=== PATIENT | female | born 2000 | race Two or more races ===

== ENCOUNTER 2024-05-27 22:17 | Emergency (ER) | payer MEDICAID, SELFPAY ==
[2024-05-27 22:17] VITALS: BMI 34.9
[2024-05-27 23:34] VITALS: BP 124/73; PULSE 73; RESP 18; TEMP 36.8; O2SAT 97
--- NOTE | 2024-05-27 23:45 | PD.EDRME ---
Rapid Medical Screening Exam RME Arrival date/time: 05/27/24 22:17 23-year-old female approximately 25 weeks 1 presents emergency department complaining of epigastric pain that radiates towards her back that started earlier today. Patient reports past medical history of gallstones. Chief Complaint: Abdominal Pain Vital signs: Vital Signs Temperature 98.2 F 05/27/24 23:34 Pulse Rate 73 05/27/24 23:34 Respiratory Rate 18 05/27/24 23:34 Blood Pressure 124/73 05/27/24 23:34 Pulse Oximetry (%) 97 05/27/24 23:34 Oxygen Delivery Method Room Air 05/27/24 23:34 Vital signs reviewed by provider: Yes
[2024-05-27] MEDS: ACETAMINOPHEN 500 MG TABLET 1000 MG PO (23:56)
--- NOTE | 2024-05-28 | XR_ITS ---
Examination: Abdomen sonogram, Limited Date and time of exam: May 28, 2024 at 1240 hours INDICATIONS: Epigastric pain beginning today with nausea Technique: Real-time do scale transabdominal sonographic images of the upper abdomen obtained. Findings: Multiple gallstones Gallbladder wall 0.2 cm Common bile duct 0.3 cm Pancreatic head 3.0 cm Liver 16.9 cm fatty infiltration smooth contour no focal liver lesions Normal hepatopedal portal venous flow Patent IVC IMPRESSION: Cholelithiasis, negative for cholecystitis
[2024-05-28 00:23] LABS: Collection Type, Urine Clean Catch
[2024-05-28 00:23] LABS: Basophils % (Auto) 0 % (0-2.5); Eosinophils # (Auto) 0.1 Thou/mm3 (0.0-0.5); Eosinophils % (Auto) 1 % (0-10); Hematocrit 38.8 % (36.0-46.0); Hemoglobin 13.4 g/dL (12.0-16.0); Immature Granulocytes % (Auto) 1 % (0-0); Immature Granulocytes Auto 0.13 Thou/mm3 (0.00-0.00); Lymphocytes % (Auto) 8 % (10-50); Mean Corpuscular HGB Conc 34.5 g/dl (31.0-37.0); Mean Corpuscular Hemoglobin 30.2 pg (25.0-35.0); Mean Corpuscular Volume 88 fL (80-100); Monocytes # (Auto) 0.9 Thou/mm3 (0.0-0.8); Monocytes % (Auto) 7 % (0-12); Neutrophils # (Auto) 11.2 Thou/mm3 (1.8-7.7); Neutrophils % (Auto) 84 % (37-80); Nucleated Red Blood Cell % 0 /100 WBC (0); Platelet Count 248 Thou/mm3 (140-440); RDW Standard Deviation 41.4 fL (36.4-46.3); Red Blood Count 4.43 Miln/mm3 (4.00-5.20); White Blood Count 13.4 Thou/mm3 (3.6-11.0)
[2024-05-28 00:35] LABS: Alanine Aminotransferase 37 U/L (10-49); Albumin, Serum 4.2 gm/dL (3.5-5.0); Albumin/Globulin Ratio 1.5 (1.2-2.2); Alkaline Phosphatase 105 U/L (46-116); Anion Gap 6 (7-16); Aspartate Amino Transferase 47 U/L (0-34); BUN/Creatinine Ratio 10 Ratio (12-20); Bilirubin,Total 0.6 mg/dL (0.3-1.2); Blood Urea Nitrogen 6 mg/dL (9-23); Calcium 9.4 mg/dL (8.3-10.6); Calcium (Corrected) 9.4 mg/dL (8.5-10.1); Carbon Dioxide 26.1 mMol/L (20.0-31.0); Chloride 105 mMol/L (98-107); Creatinine (Component) 0.6 mg/dL (0.6-1.3); Estimated Creatinine Clearance 175.5 mL/min (>60); Globulin 2.8 gm/dL (2.3-3.5); Glucose 115 mg/dL (74-106); Lipase 47 U/L (12-53); Osmolality,Calculated 272 (275-295); Potassium 3.8 mMol/L (3.4-5.1); Sodium 137 mMol/L (136-145); eGFR > 60 See Note
[2024-05-28 00:43] LABS: Bacteria,Urine 1+; Bilirubin,Urine Negative (Negative); Blood,Urine Negative (Negative); Budding Yeast,Urine Present; Clarity,Urine Turbid (Clear/Hazy); Color,Urine Yellow (Lt Yel-Yel); Glucose, Urine Negative (Negative); Ketones,Urine Negative (Negative); Leukocyte Esterase,Urine Negative (Negative); Nitrite,Urine Negative (Negative); Protein,Urine Trace (Neg - Trace); RBC,Urine 8 /hpf (0-3); Specific Gravity,Urine 1.023 (1.001-1.035); Squamous Epithelial Cell,Urine 1 /hpf (0-5); WBC,Urine 15 /hpf (0-5)
[2024-05-28 00:47] LABS: Culture Indicated,Urine Yes; Sperm,Urine Present
[2024-05-28 00:54] LABS: Beta HCG,Quantitative 2568 mIU/mL (<5.0)
[2024-05-28 01:04] VITALS: BP 127/65; PULSE 65; RESP 18; TEMP 36.7; O2SAT 99
--- NOTE | 2024-05-28 01:07 | PD.EDABDPN ---
ED Abdominal Pain RME/HPI General Chief Complaint: Abdominal Pain Stated complaint: RIGHT UPPER ABD PAIN Time seen by provider: 05/28/24 01:04 Arrival date/time: 05/27/24 22:17 RME / HPI RME / HPI narrative: 05/27/24 22:17 23-year-old female approximately 25 weeks 1 presents emergency department complaining of epigastric pain that radiates towards her back that started earlier today. Patient reports past medical history of gallstones. --------- Dr. Tim?s Main ED Evaluation: 23yo female with a history of gallstones who is approx. 25 weeks gestation presents to the ED for a chief complaint of epigastric pain x 2200. Patient states her pain feels similar to her gallstone pain, but reports she's had decreased movement and was concerned, so she came in for evaluation. She reports one associated emetic episode. She denies any vaginal bleeding or discharge, fever, chills or any other associated symptoms. No known allergies. OB is Marily Franklin. Related Data Previous Rx's ?Medication ?Instructions ?Recorded hydrocodone 5 mg-acetaminophen 325 1 tab PO BID PRN pain #10 tabs 10/29/23 mg tablet ibuprofen 800 mg tablet 800 mg PO TID PRN pain #30 tabs 10/29/23 ondansetron 4 mg disintegrating 4 mg PO Q8H PRN nausea and 10/29/23 tablet vomiting #10 tabs Allergies Allergy/AdvReac Type Severity Reaction Status Date / Time No Known Allergies Allergy Verified 05/27/24 22:20 Review of Systems Review of Systems Systems Reviewed: All systems reviewed, normal except as documented Past Medical History Past Medical History CARDIAC: Negative Congestive Heart Failure, Hypertension or Hypotension RESPIRATORY: Negative Chronic Obstructive Pulmonary Disease (COPD) GASTROINTESTINAL: Positive Gall Bladder Disease GENITOURINARY: Negative Genitourinary Disorders or Renal Disease ENDOCRINE: Negative Diabetes Mellitus Type 1 or Diabetes Mellitus Type 2 Social History SMOKING STATUS: Never smoker ED Exam Narrative Physical exam: GENERAL APPEARANCE: alert and oriented x 4, well-developed, well-nourished, no acute distress VITALS: All vitals were reviewed and the pulse ox is 99% on room air, which is normal according to my interpretation. HEENT: Normocephalic, atraumatic; pupils equal, round, reactive to light; EOMI; mucous membranes pink, moist; oropharynx clear NECK: Supple LUNGS: CTABL; no wheezes, no rales, no rhonchi HEART: Regular rate, regular rhythm; normal S1, S2; no murmurs ABDOMEN: non distended; normal BS; soft, no tenderness, no guarding, no rebound; no masses, no organomegaly, no hernia BACK: no CVA tenderness EXTREMITIES: atraumatic; no edema NEUROLOGIC: awake; alert and oriented x4; cranial nerves II-XII grossly intact; no focal sensory or motor deficits PSYCHIATRIC: appropriate mood and affect SKIN: warm, dry, normal color; no rashes Course Quality Measures none Orders Category Date Time Status US OB limited Stat Exams 05/28/24 01:43 Taken US gall bladder Stat Exams 05/28/24 00:00 Taken Beta HCG,Quantitative Stat Lab 05/27/24 23:59 Completed CBC Stat Lab 05/27/24 23:59 Completed CMP [Comprehensive Metabolic Panel] Stat Lab 05/27/24 23:59 Completed Lipase Stat Lab 05/27/24 23:59 Completed Urinalysis, C/S if Indicated Stat Lab 05/28/24 00:10 Completed Urine Culture Stat Lab 05/28/24 00:10 Received Acetaminophen Tab [Tylenol ES Tab] Med 05/27/24 23:43 Discontinued 1,000 mg PO X1 ONE cefTRIAXone [Rocephin] 1,000 mg Med 05/28/24 02:56 Discontinued Lidocaine 1% 20 ml [Xylocaine 1% 20 ML] 2.1 ml IM X1 cefTRIAXone/D5w 1gm IV premix [Rocephin/D5w 1gm IV Med 05/28/24 02:44 Discontinued premix] 50 ml IV X1 Vital Signs Vital signs: Vital Signs Temperature 98.2 F 05/27/24 23:34 Pulse Rate 73 05/27/24 23:34 Respiratory Rate 18 05/27/24 23:34 Blood Pressure 124/73 05/27/24 23:34 Pulse Oximetry (%) 97 05/27/24 23:34 Oxygen Delivery Method Room Air 05/27/24 23:34 Abdominal Pain MDM MDM Narrative MDM Narrative:: Scribe Attestation: 05/28/24 - Ilene Reyes am scribing for and in the presence of Dr. Tim. Patient data External records reviewed:: [facility] previous records (Per chart review, patient was seen here on 01/16/24 for gallstones.) Clinical information provided by:: patient Social determinants that could affect healthcare access:: none Patient has the following chronic illnesses:: gallstones How is presenting disease/condition affected by chronic disease/condition?: caused by Evaluation data The following diagnostics were reviewed and interpreted by me:: lab results and radiology exam(s) Lab and/or radiology exams considered but not ordered:: none Interpretation Summary: WBC count is elevated at 13.4, AST is slightly elevated, Total Bilirubin is normal, Lipase is normal, Beta HCG is 2568, UA is positive for a UTI, according to my interpretation. ----- [facility] Preliminary Report Draft Patient: PARAMJIT PARISH. Record#: [id number] Birthdate: 2000 Age/Sex: 23 / F Location: [facility] Attending Dr: Ordering Physician: Date of Service: Procedure(s): Accession Number(s): cc: ~ Right upper quadrant abdominal ultrasound. January 15, 2024 at 0530 hours Clinical history: Right upper quadrant/epigastric pain; has stones. Technique: Grayscale and color flow images of the right upper quadrant are provided. Hepatic and portal veins were also imaged with color flow images. Comparison: No prior study is available for comparison. Findings: The liver is normal in echogenicity. No intrahepatic biliary ductal dilatation. Multiple gallbladder calculi are see. No gallbladder wall thickening or pericholecystic fluid is demonstrated. The common bile duct is dilated in caliber at 8.1 mm. The pancreas is not visualized due to bowel gas. Impression: Dilated common bile duct, the possibility of cholangitis cannot be excluded. Recommend clinical correlation and follow-up. Cholelithiasis without defined evidence of acute cholecystitis. Report Electronically Signed By: Timbo Gibbons 01/15/2024 7:04:44 AM [employer] Preliminary Report Draft Patient: PARAMJIT PARISH. Record#: [id number] Birthdate: 2000 Age/Sex: 23 / F Location: [facility] Attending Dr: Ordering Physician: Date of Service: Procedure(s): Accession Number(s): cc: ~ Ultrasound Abdomen. May 28, 2024 at 0040 hours Clinical history: Rule out gallstones, complaint of abdominal pain. Technique: Grayscale and color flow images of the abdomen are provided. Hepatic and portal veins were also imaged with color flow images. Comparison: No prior study is available for comparison. Findings: Gallbladder wall is 2 mm thick. Multiple gallbladder calculi and sludge are noted. Common bile duct is 3 mm in diameter. Pancreas is unremarkable to the extent visualized. Liver is 16.9 cm long and o'clock. Main portal vein is antegrade. Inferior vena cava is patent. Impression: Cholelithiasis and gallbladder sludge. No ultrasound findings of cholecystitis. Report Electronically Signed By: Tye Taveras 05/28/2024 2:24:21 AM [employer] Preliminary Report Draft Patient: PARAMJIT PARISH Record#: [id number] Birthdate: 2000 Age/Sex: 23 / F Location: [facility] Attending Dr: Ordering Physician: Date of Service: Procedure(s): Accession Number(s): cc: ~ Limited Obstetrics Ultrasound; dated May 28, 2024 at 0209 hours Clinical history: No movement felt by mom x? hours. Findings and Impression: Live intrauterine gestation with heart rate of 127 bpm. Normal motion is seen. Report Electronically Signed By: Tye Taveras 05/28/2024 3:35:46 AM [EST] Medications / Prescriptions Medications or Prescriptions considered but not ordered:: none Medication administrations:: Medication Administration History Discontinued Medications Acetaminophen (Acetaminophen 500 Mg Tablet) 1,000 mg PO X1 ONE Stop: 05/27/24 23:44 Last Admin: 05/27/24 23:56 Dose: 1,000 mg Documented By: FARIBA Ceftriaxone Sodium 1,000 mg/ (Lidocaine HCl 2.1 ml) 0 mg IM X1 ONE Stop: 05/28/24 02:57 Last Admin: 05/28/24 03:00 Dose: 1,000 mg Documented By: REBECCA Ceftriaxone Sodium/Dextrose (Rocephin/D5w 1gm Iv Premix) 50 mls @ 100 mls/hr IV X1 ONE Stop: 05/28/24 03:13 Last Admin: 05/28/24 03:01 Dose: Not Given Documented By: CB Non-Admin Reason: Duplicate Medication on eMAR see above Consultations Consultation(s) initiated? (list below): No Diagnosis Differential diagnosis abdominal pain: pancreatitis and other (cholecystitis, choledocolithiasis, gallstone pancreatitis, PUD, gastritis) Most likely diagnosis given after review of the tests above:: see below Admission Indicated Admission indicated?: not indicated Admission Request Was there a request for admission?: No Disposition Plan Disposition Plan: Discharge Discharge Attestation Discharge Attestation: The patient and all family members were given an opportunity to ask questions and understood the discharge instructions. Discharge instructions specifically effects, indications for sooner follow up or return to the emergency department, and the expected course of current diagnosis. Patient condition: Stable Discharge Plan Plan Patient Disposition: HOME (Self Care) Disposition Comment: Stable for discharge Patient condition on transfer: Stable Prescriptions/Referrals Prescriptions/Med Rec: No Action ibuprofen 800 mg tablet 800 mg PO TID PRN (Reason: pain) Qty: 30 0RF hydrocodone-acetaminophen 5-325 mg tablet 1 tab PO BID MDD 10 PRN (Reason: pain) Qty: 10 0RF ondansetron 4 mg tablet,disintegrating 4 mg PO Q8H PRN (Reason: nausea and vomiting) Qty: 10 0RF Problem List Clinical Impression: Biliary colic Patient/Caregiver Discharge Instructions Discharge Activity: activity as tolerated Diet Instructions: No greasy or fatty foods. Education Materials: What Are Gallstones, ED Gallstones with Biliary Colic Additional Instructions: Return to the emergency department for any worsening or any further medical problems. Otherwise you should follow-up with your primary care doctor within the next several days as well as your primary [employer] doctor Print Language: Citizen Of [place] Stand Alone Forms: Susan Award Info., Patient Portal Info Letter
--- NOTE | 2024-05-28 01:43 | XR_ITS ---
Examination: age Limited Technique: Limited transabdominal sonographic images pelvis Exam date and time: May 28, 2024 at 0209 hrs. Indications: Decreased movement beginning 7:00 AM yesterday Findings: Viable intrauterine gestation movement and tone noted Cardiac motion 127 BPM Impression: Viable intrauterine gestation with movement and tone
--- NOTE | 2024-05-28 02:25 | PRELIM_ITS ---
Ultrasound Abdomen. May 28, 2024 at 0040 hours Clinical history: Rule out gallstones, complaint of abdominal pain. Technique: Grayscale and color flow images of the abdomen are provided. Hepatic and portal veins were also imaged with color flow images. Comparison: No prior study is available for comparison. Findings: Gallbladder wall is 2 mm thick. Multiple gallbladder calculi and sludge are noted. Common bile duct is 3 mm in diameter. Pancreas is unremarkable to the extent visualized. Liver is 16.9 cm long and o'clock. Main portal vein is antegrade. Inferior vena cava is patent. Impression: Cholelithiasis and gallbladder sludge. No ultrasound findings of cholecystitis. Report Electronically Signed By: Tye Taveras 05/28/2024 2:24:21 AM [EST]
[2024-05-28] MEDS: cefTRIAXone 1,000 MG, LIDOCAINE 1% 20 ML 2.1 ML IM (03:00)
--- NOTE | 2024-05-28 03:36 | PRELIM_ITS ---
Limited Obstetrics Ultrasound; dated May 28, 2024 at 0209 hours Clinical history: No movement felt by mom x? hours. Findings and Impression: Live intrauterine gestation with heart rate of 127 bpm. Normal motion is seen. Report Electronically Signed By: Tye Taveras 05/28/2024 3:35:46 AM [EST]
== END 2024-05-28 03:33 | disposition home or self-care (01) ==
PROVIDERS: Emergency Provider Emergency Medicine
DX: O26.612 Liver and biliary tract disorders in pregnancy, second trimester (principal); K80.70 Calculus of gallbladder and bile duct without cholecystitis without obstruction; Z3A.25 25 weeks gestation of pregnancy
CPT/HCPCS: 36415; 76705; 76815; 80053; 81001; 83690; 84702; 85025; 87086; 96372; 99284; J0696; J3490; A9270

== ENCOUNTER 2024-06-04 21:08 | Observation (INO) | payer MEDICAID, SELFPAY ==
--- NOTE | 2024-06-04 21:38 | PD.LDPN ---
Documentation for date of: 06/04/24 OB Labor Progress Note Assessment and Plan Comments: Patient is a 23yo G1 with SIUP at 26+wk presenting to L&D for less movement today. She notes no ctx, no lof, no vaginal bleeding. Current : This has been uncomplicated, she has had regular OB care with her OBGYN. Hasn't done glucola test yet. ROS negative other than what was described above. Vitals wnl, afebrile General: well developed, well nourished, no acute distress, conversant Cardiac: normal heart rate Lungs: breathing without distress Abdomen: soft, gravid, non-tender, no rebound or guarding Extremities: no pain with palpation of calves NST: reassuring for gestational age with 10x10 accels, no decels, mod em Bedside ultrasound performed by Dr. Alba: SIUP with cephalic presentation, +FCA, very active FM, posterior placenta, MVP 4.5cm Assessment: Patient is a 23yo G1 with SIUP at 26+wk with decreased movement. Vitals wnl, benign exam. Reassuring status based on NST/MVP (modified BPP). Plan: -Provided reassurance regarding findings -Continue routine follow up with OBGYN -Discussed return precautions at length including FKCs to start at 28wk Dr. Alba
[2024-06-04 22:04] VITALS: BP 129/60; PULSE 77; RESP 100; RESP 16; TEMP 36.8; BMI 35.6
== END 2024-06-04 22:08 | disposition home or self-care (01) ==
PROVIDERS: Admitting Provider Obstetrics & Gynecology; Visit Provider Obstetrics & Gynecology
DX: O36.8120 Decreased fetal movements, second trimester, not applicable or unspecified (principal); Z3A.26 26 weeks gestation of pregnancy
CPT/HCPCS: 59025; 59899

== ENCOUNTER 2024-06-23 18:56 | Emergency (ER) | payer MEDICAID, SELFPAY ==
[2024-06-23 18:01] VITALS: BP 137/81; PULSE 67
--- NOTE | 2024-06-23 18:29 | PD.LDTRIAGE2 ---
Documentation for date of: 06/23/24 Hx History Provider: Marily Franklin : 1 Para: 0 Hx Section: No Hx Vaginal Delivery Post : No Gestation Info Final DOMINIQUE: 09/08/24 Gestational Age (weeks): 28 Complaint Complaint Complaint: Severe right upper quadrant pain and nausea vomiting, fundus nontender pain right upper abdomen. Medical History Medical History Medical History: Patient is a 23-year-old G1, P0 at 28 weeks all care complicated with Marily Franklin with a history of gallstones present for at least a year with multiple trips to the ER. Patient presents with intractable nausea vomiting and pain. She was cleared from obstetrics and sent back down to the emergency room for further evaluation and a surgical consult. She reports good movement no contractions no loss of fluids no vaginal bleeding Contractions Evaluation Contractions Resting Tone Palpate: Soft Contraction Comment: No contractions seen on monitor Vaginal Bleeding Vaginal Bleeding Amount: None Heart Monitoring Heart Rate Assessment Monitor Mode: External FHR Baseline: 140 Accelerations: 15x15 Monitor Decelerations: None FHR Pattern Category: Category l Movement Reported: Yes NST Reactive: Yes WNL for GA: Yes Assessment Comment: Category 1 for gestational age of 28 weeks Amniotic Membranes Amniotic Membranes Amniotic Membrane Status: Intact RN Notes Disposition Dispostition: ER (Patient with right upper quadrant pain aacute gallbladder attack. Cleared from the obstetrical unit to go down to the ER to be further evaluated by general surgery. If patient needs to get admitted she will be admitted back up to labor and delivery for observation and pain control with general lila)
--- NOTE | 2024-06-23 18:37 | PD.LDPN ---
Documentation for date of: 06/23/24 OB Labor Progress Note Pain Control Pain control: other (Patient reports fairly severe right upper quadrant pain) Comments: Patient is a 23-year-old all care with Marily Franklin CNM presented to triage at 28 weeks with an EDC of 09/08/2024 with right upper quadrant pain. Patient has a history of gallstones diagnosed around a year ago and no definitive gallbladder removal yet. Patient reports nausea vomiting increasing over the last 2 days unable to keep food down. She has been trying Tylenol at home without success. She was sent from the ER to get cleared obstetrically. At this point we will send her back downstairs for further imaging labs and a surgical consult. Pelvic Exam Amniotic membrane status: Intact Comments: Pelvic exam exam deferred Contractions Contraction frequency: No uterine contractions Status status: Category l Comments: Reactive for 28-week Assessment and Plan Plan OB labor note: other (Send back to the ER for further evaluation.) Comments: If patient needs to be admitted will admit here as an antepartum patient on labor and delivery. With surgical consult. Okay for patient to have Dilaudid or [place] during for pain with gallstones.
--- NOTE | 2024-06-23 18:55 | PC.NURSE ---
1809- CALL MADE TO MD NÉSTOR CARY REPORT GIVEN. EDC 09/08/24 GA 28 08/22 TODAY. DENIES CTX OR TIGHTENING OF STOMACH, DENIES LEAKING OR BLEEDING AND REPORTS ACTIVE FM. CAT 1 STRIP AT THIS TIME. REPORTS RIGHT UPPER QUADRANT PAIN 01/25 PT STATES I DONT THINK IM IN LABOR IT HURTS LIKE ITS MY GALLSTONES AND HAS HISTORY OF GALLSTONES SINCE MAY 2023 WITH MULTIPLE VISITS TO ED RELATED TO ABDOMINAL PAIN. POC TO TRANSFER PT TO ED FOR FURTHER EVALUATION. PT REPORTS TAKING TYLENOL AT HOME AT AROUND 1200. 1827- EFMX2 REMOVED FOR TRANSFER TO ED VIA WHEELCHAIR. REPORT GIVEN TO ED TRIAGE NURSE. REACTIVE NST AND NO CTX PER EFM STRIP. 1829- TO ED VIA WHEELCHAIR ACCOMPANIED BY RN. PER TRIAGE NURSE PT TO BE TAKEN TO REGISTRATION.
[2024-06-23 19:21] VITALS: BMI 35.2
[2024-06-23 19:35] VITALS: BP 139/85; PULSE 82; RESP 18; TEMP 36.6; O2SAT 97
--- NOTE | 2024-06-23 19:36 | XR_ITS ---
Examination: Abdomen sonogram, Limited Date and time of exam: June 23, 2024 1001 hrs. Indications: Right upper abdominal pain today, cholecystectomy 2 weeks ago Technique: Real-time do scale transabdominal sonographic images of the upper abdomen obtained. Findings: History given is apparently incorrect Gallbladder is identified with multiple gallstones No common bile duct is abnormally large 0.9 cm Pancreatic head 2.3 cm Liver 14.7 cm fatty infiltration Normal hepatopedal portal venous flow Patent IVC Impression: Abnormal enlargement common bile duct, recommend MRCP follow-up
--- NOTE | 2024-06-23 19:36 | PD.EDRME ---
Rapid Medical Screening Exam RME Arrival date/time: 06/23/24 18:56 23-year-old female 29 weeks gestation reports with complaints of epigastric and right upper quadrant abdominal pain that radiates to the back Time Seen by Provider: 06/23/24 19:34 Vital signs: Vital Signs Pulse Rate 67 06/23/24 18:01 Blood Pressure 137/81 H 06/23/24 18:01
[2024-06-23 19:49] LABS: Basophils % (Auto) 0 % (0-2.5); Eosinophils % (Auto) 0 % (0-10); Hematocrit 41.7 % (36.0-46.0); Hemoglobin 14.4 g/dL (12.0-16.0); Immature Granulocytes % (Auto) 1 % (0-0); Immature Granulocytes Auto 0.11 Thou/mm3 (0.00-0.00); Lymphocytes # (Auto) 0.7 Thou/mm3 (1.0-4.8); Lymphocytes % (Auto) 5 % (10-50); Mean Corpuscular HGB Conc 34.5 g/dl (31.0-37.0); Mean Corpuscular Hemoglobin 29.9 pg (25.0-35.0); Mean Corpuscular Volume 87 fL (80-100); Monocytes # (Auto) 0.9 Thou/mm3 (0.0-0.8); Monocytes % (Auto) 6 % (0-12); Neutrophils # (Auto) 12.8 Thou/mm3 (1.8-7.7); Neutrophils % (Auto) 88 % (37-80); Nucleated Red Blood Cell % 0 /100 WBC (0); Platelet Count 252 Thou/mm3 (140-440); RDW Standard Deviation 40.1 fL (36.4-46.3); Red Blood Count 4.82 Miln/mm3 (4.00-5.20); White Blood Count 14.6 Thou/mm3 (3.6-11.0)
[2024-06-23 20:09] LABS: Alanine Aminotransferase 76 U/L (10-49); Albumin, Serum 4.7 gm/dL (3.5-5.0); Albumin/Globulin Ratio 1.6 (1.2-2.2); Alkaline Phosphatase 149 U/L (46-116); Anion Gap 10 (7-16); Aspartate Amino Transferase 59 U/L (0-34); BUN/Creatinine Ratio 8 Ratio (12-20); Bilirubin,Total 3.2 mg/dL (0.3-1.2); Blood Urea Nitrogen 5 mg/dL (9-23); Calcium 9.9 mg/dL (8.3-10.6); Calcium (Corrected) 9.9 mg/dL (8.5-10.1); Carbon Dioxide 25.8 mMol/L (20.0-31.0); Chloride 106 mMol/L (98-107); Creatinine (Component) 0.6 mg/dL (0.6-1.3); Estimated Creatinine Clearance 175.9 mL/min (>60); Glucose 87 mg/dL (74-106); Lipase 40 U/L (12-53); Osmolality,Calculated 279 (275-295); Potassium 4.1 mMol/L (3.4-5.1); Sodium 142 mMol/L (136-145); Total Protein 7.7 gm/dL (5.7-8.2); eGFR > 60 See Note
[2024-06-23 20:42] LABS: Collection Type, Urine Clean Catch
[2024-06-23 20:49] LABS: Bilirubin,Urine 3+ (Negative); Blood,Urine Negative (Negative); Clarity,Urine Turbid (Clear/Hazy); Color,Urine Drk-Yellow (Lt Yel-Yel); Glucose, Urine Negative (Negative); Ketones,Urine 4+ (Negative); Leukocyte Esterase,Urine Positive (Negative); Nitrite,Urine Negative (Negative); Protein,Urine 1+ (Neg - Trace); RBC,Urine 6 /hpf (0-3); Specific Gravity,Urine 1.029 (1.001-1.035); Squamous Epithelial Cell,Urine 12 /hpf (0-5); WBC,Urine 23 /hpf (0-5)
[2024-06-23 20:50] LABS: Bacteria,Urine 1+; Culture Indicated,Urine Contaminated
[2024-06-23 21:39] LABS: Alanine Aminotransferase 75 U/L (10-49); Albumin, Serum 4.4 gm/dL (3.5-5.0); Alkaline Phosphatase 153 U/L (46-116); Amylase 91 U/L (30-118); Aspartate Amino Transferase 73 U/L (0-34); Bilirubin,Total 3.2 mg/dL (0.3-1.2); Magnesium 2.1 mg/dL (1.6-2.6); Total Protein 7.1 gm/dL (5.7-8.2)
[2024-06-23] MEDS: oxyCODONE/APAP 5/325 TABLET 2 TAB PO (23:13)
[2024-06-23 23:15] VITALS: BP 130/72; PULSE 80; RESP 19; TEMP 36.8; O2SAT 98
[2024-06-23] MEDS: ONDANSETRON ODT 4 MG TABRAP PO (23:15)
[2024-06-24 00:04] VITALS: BP 137/78; PULSE 80; RESP 18; TEMP 36.6; O2SAT 98
--- NOTE | 2024-07-06 03:12 | EDNOTE_ITS ---
ED Abdominal Pain RME/HPI General Chief Complaint: Abdominal Pain Stated complaint: EPIGASTRIC PAIN Time seen by provider: 06/23/24 19:34 Arrival date/time: 06/23/24 18:56 RME / HPI RME / HPI narrative: 06/23/24 18:56 23-year-old female 29 weeks gestation reports with complaints of epigastric and right upper quadrant abdominal pain that radiates to the back This section includes all my notes and documentations, including HPI, PE, and ED course. Herb Kenyon MD HPI: 23-year-old female here with few days of vomiting and upper abdominal pain. No fever. No urinary symptoms. No other complaints. ROS: All negative except as documented in HPI. Physical Exam: General: Alert and oriented. No acute distress when remaining still. Eyes: Conjunctivae and lids clear. ENT: No nasal congestion. Neck: Supple. Heart: RRR. Lungs: No respiratory distress. Good air movement. No rhonchi, wheezing, rales. Abdomen: Soft with RUQ and epigastric tenderness. Normal bowel sounds. No distension. No rebound or guarding. Back: No CVA tenderness. Skin: Warm and dry. Neuro: Alert and oriented X 3. I reviewed all diagnostic test results. My review of the abdominal US report is cholelithiasis with enlarged CBD. Blood tests and urine tests remarkable for elevated LFT. At this point, diagnoses include cholelithiasis with enlarged CBD. Treatment here included Zofran ODT and Percocet 5/325 mg X 2. Significant improvement noted. Recommended transfer for further care, including MRCP recommended by radiologist. Patient declined. Discussed potential risks. Patient still declined. Based on my best medical judgment, made decision no further evaluation or treatment indicated at this time. Patient understands and agrees to the discharge instructions customized and printed, see below. Discharge Instructions from Dr. Kenyon: 1. After evaluation, your symptoms are due to gallstone(s).? You need gallbladder to help digest fatty foods. Your gallbladder is infected. And you may also have stone(s) in the common bile duct causing blockage and liver damage. 2. Recommendation was made to transfer to another facility. Because we don't have MRI to better assess the gallbladder and common bile duct and liver. But since you declined, you are being discharged home as you requested. 3. Zofran for nausea/vomiting.? Percocets for pain. Augmentin for the infection. We need to eat regular nutritious meals for you and the baby. For good hydration, increase oral fluid and maintain clear urine. If dark or yellow, increase oral fluid. 4. See a private doctor or return here on early in the morning for further care, including the MRI. 5. Seek immediate medical care with intolerable pain, fever, or with any concerns. Herb Kenyon MD Related Data Home Medications ?Medication ?Instructions ?Recorded ?Confirmed vit no.95-ferrous 1 tab PO QDAY 06/04/2405/19 fumarate 28 mg-folic acid 800 mcg tablet () Previous Rx's ?Medication ?Instructions ?Recorded ondansetron 4 mg disintegrating 4 mg PO TID PRN nausea and 06/24/24 tablet vomiting 30 days #30 tabs oxycodone-acetaminophen 5 mg-325 2 tab PO Q8H PRN pain #20 tabs 06/24/24 mg tablet (Percocet) Allergies Allergy/AdvReac Type Severity Reaction Status Date / Time No Known Allergies Allergy Verified 06/23/24 19:15 Course Quality Measures none Orders Category Date Time Status Place in Observation Status Routine Admission 06/23/24 18:12 Active MRI Screening NOW Care 06/23/24 23:54 Completed Non-Stress Test Now Care 06/23/24 18:15 Completed OB Triage NEEDED Care 06/23/24 18:12 Completed US abdomen limited Stat Exams 06/23/24 19:36 Completed Amylase Stat Lab 06/23/24 19:44 Completed CBC Stat Lab 06/23/24 19:44 Completed CMP [Comprehensive Metabolic Panel] Stat Lab 06/23/24 19:44 Completed Lipase Stat Lab 06/23/24 19:44 Completed Liver Panel Stat Lab 06/23/24 19:44 Completed Magnesium Stat Lab 06/23/24 19:44 Completed UA, C/S IF [Urinalysis, C/S if Indicated] Stat Lab 06/23/24 20:28 Completed Ondansetron Odt [Zofran Odt] Med 06/23/24 23:02 Discontinued 4 mg PO X1 ONE oxyCODONE/APAP 5/325 [Percocet 5/325] Med 06/23/24 23:02 Discontinued 2 tab PO X1 ONE Vital Signs Vital signs: Vital Signs Pulse Rate 67 06/23/24 18:01 Blood Pressure 137/81 H 06/23/24 18:01 Abdominal Pain MDM Patient data External records reviewed:: [facility] previous records Clinical information provided by:: patient Social determinants that could affect healthcare access:: none Patient has the following chronic illnesses:: Current How is presenting disease/condition affected by chronic disease/condition?: uneffected by Evaluation data The following diagnostics were reviewed and interpreted by me:: lab results and radiology exam(s) Lab and/or radiology exams considered but not ordered:: None Interpretation Summary: Cholelithiasis Medications / Prescriptions Medications or Prescriptions considered but not ordered:: None Medication administrations:: Medication Administration History Discontinued Medications Ondansetron HCl (Ondansetron Odt 4 Mg Tabrap) 4 mg PO X1 ONE; Protocol Stop: 06/23/24 23:03 Last Admin: 06/23/24 23:15 Dose: 4 mg Documented By: HUAN Oxycodone/Acetaminophen (Oxycodone/Apap 5/325 Tablet) 2 tab PO X1 ONE Stop: 06/23/24 23:03 Last Admin: 06/23/24 23:13 Dose: 1 tab Documented By: HUAN Comments: MD Kenyon aware pt only wanted to take 1 pill due to , 1 pill had a positive effect on pain. Zofran ODT and Percocet Consultations Consultation(s) initiated? (list below): No Diagnosis Differential diagnosis abdominal pain: acute appendicitis, calculus of kidney, constipation, diverticulitis, pancreatitis, small bowel obstruction and other (Cholelithiasis, cholecystitis) Most likely diagnosis given after review of the tests above:: Cholelithiasis with enlarged CBD Admission Indicated Admission indicated?: not indicated Explain why admission is indicated or not indicated:: Patient declined Admission Request Was there a request for admission?: No Disposition Plan Disposition Plan: Discharge Discharge Attestation Discharge Attestation: The patient and all family members were given an opportunity to ask questions and understood the discharge instructions. Discharge instructions specifically effects, indications for sooner follow up or return to the emergency department, and the expected course of current diagnosis. Patient condition: Stable Discharge Plan Plan Patient Disposition: HOME (Self Care) Prescriptions/Referrals Prescriptions/Med Rec: New ondansetron 4 mg tablet,disintegrating 4 mg PO TID PRN (Reason: nausea and vomiting) 30 Days Qty: 30 0RF oxycodone-acetaminophen [Percocet] 5-325 mg tablet 2 tab PO Q8H MDD 6 PRN (Reason: pain) Qty: 20 0RF Rx Instructions: For gallstones and infection. No Action PNV cmb#95-ferrous fumarate-FA [] 28 mg iron- 800 mcg tablet 1 tab PO QDAY Patient Comments: TAKE 1 TABLET BY MOUTH EVERY DAY Referrals: No Primary/Family,Physician [Primary Care Provider] - In 1 week Problem List Clinical Impression: Gallstones Patient/Caregiver Discharge Instructions Education Materials: ED Gallstones with Biliary Colic Additional Instructions: Discharge Instructions from Dr. Kenyon: 1. After evaluation, your symptoms are due to gallstone(s).? You need gallbladder to help digest fatty foods. Your gallbladder is infected. And you may also have stone(s) in the common bile duct causing blockage and liver damage. 2. Recommendation was made to transfer to another facility. Because we don't have MRI to better assess the gallbladder and common bile duct and liver. But since you declined, you are being discharged home as you requested. 3. Zofran for nausea/vomiting.? Percocets for pain. Augmentin for the infection. We need to eat regular nutritious meals for you and the baby. For good hydration, increase oral fluid and maintain clear urine. If dark or yellow, increase oral fluid. 4. See a private doctor or return here on early in the morning for further care, including the MRI. 5. Seek immediate medical care with intolerable pain, fever, or with any concerns. Print Language: Namibian Stand Alone Forms: Susan Award Info., Patient Portal Info Letter
== END 2024-06-24 01:16 | disposition home or self-care (01) ==
LOC: SERX 19:22
PROVIDERS: Physician Assistant; Emergency Provider Emergency Medicine
DX: O26.613 Liver and biliary tract disorders in pregnancy, third trimester (principal); K80.20 Calculus of gallbladder without cholecystitis without obstruction; K83.8 Other specified diseases of biliary tract; R79.89 Other specified abnormal findings of blood chemistry; Z3A.29 29 weeks gestation of pregnancy
CPT/HCPCS: 36415; 76705; 80053; 80076; 81001; 82150; 82248; 83690; 83735; 85025; 87086; 99284; Q0162; A9270

== ENCOUNTER 2024-08-23 07:54 | Outpatient (RCR) | payer MEDICAID, SELFPAY ==
--- NOTE | 2024-08-23 08:07 | XR_ITS ---
Examination: Biophysical profile, ultrasound Date and time of exam: August 23, 2024 0811 hours INDICATIONS: Diagnosis maternal obesity complicating Technique: Multiple transabdominal sonographic images of the pelvis abdomen obtained. Attention is directed to the breathing movement, gross body movement, amniotic fluid volume and tone. Findings: Amniotic fluid index 5.7 cm Total biophysical profile is 8 of 8. breathing movement is 2. Gross body movement is 2. tone is 2. Qualitative amniotic fluid volume is 2 Impression: Biophysical profile is 8 of 8.
[2024-08-23 08:33] VITALS: BP 113/56; PULSE 81; RESP 16; TEMP 36.8
== END 2024-08-23 23:59 | disposition home or self-care (01) ==
LOC: S4S1 07:54
PROVIDERS: Referring Provider Student in an Organized Health Care Education/Training Program; Visit Provider Student in an Organized Health Care Education/Training Program
DX: O99.213 Obesity complicating pregnancy, third trimester (principal); E66.9 Obesity, unspecified; Z3A.37 37 weeks gestation of pregnancy
CPT/HCPCS: 59025; 76819; J2795; J3010

== ENCOUNTER 2024-08-24 22:43 | Inpatient (IN) | payer MEDICAID, SELFPAY ==
[2024-08-24] VITALS (8 sets, daily range): BP systolic 117; BP diastolic 67; PULSE 82–105; TEMP 36.8; O2SAT 96–97; BMI 35.6
[2024-08-24 23:47] LABS: Basophils % (Auto) 0 % (0-2.5); Eosinophils # (Auto) 0.1 Thou/mm3 (0.0-0.5); Eosinophils % (Auto) 1 % (0-10); Hematocrit 37.2 % (36.0-46.0); Hemoglobin 13.1 g/dL (12.0-16.0); Immature Granulocytes % (Auto) 1 % (0-0); Immature Granulocytes Auto 0.05 Thou/mm3 (0.00-0.00); Lymphocytes # (Auto) 1.6 Thou/mm3 (1.0-4.8); Lymphocytes % (Auto) 15 % (10-50); Mean Corpuscular HGB Conc 35.2 g/dl (31.0-37.0); Mean Corpuscular Hemoglobin 29.1 pg (25.0-35.0); Mean Corpuscular Volume 83 fL (80-100); Monocytes % (Auto) 9 % (0-12); Neutrophils # (Auto) 7.6 Thou/mm3 (1.8-7.7); Neutrophils % (Auto) 74 % (37-80); Nucleated Red Blood Cell % 0 /100 WBC (0); Platelet Count 316 Thou/mm3 (140-440); RDW Standard Deviation 39.3 fL (36.4-46.3); White Blood Count 10.3 Thou/mm3 (3.6-11.0)
[2024-08-25] VITALS (209 sets, daily range): BP systolic 101–136; BP diastolic 52–80; PULSE 50–132; RESP 16–18; TEMP 36.4–36.9; O2SAT 56–100
[2024-08-25 00:22] LABS: Syphilis Nonreactive (Nonreactive)
[2024-08-25] MEDS: RINGERS LACTATED 1000 ML 1,000 ML 999 ML IV (00:49)
[2024-08-25] MEDS: RINGERS LACTATED 1000 ML 1,000 ML 100 ML IV ×2 (02:30→07:15)
[2024-08-25] MEDS: MISOPROSTOL 50 mCg TABLET PO ×4 (02:50→18:23)
--- NOTE | 2024-08-25 07:05 | ESHP_ITS ---
Documentation for date of: 08/24/24 OB Labor/Induct. HPI History of Present Illness Chief complaint: Induction of labor for gallstones : 1 Para: 0 Term pregnancies: 0 pregnancies: 0 Living children: 0 History of Abortions: Spontaneous and Elective: 0 History of Vaginal deliveries: 0 History of sections: No History of : No DOMINIQUE: 09/13/24 Gestational Age (weeks): 37 Gestational Age (days): 0 Indication for induction: other (Gallstones) History of present illness: Patient is a 23-year-old G1, P0 with all care uncomplicated with health system history of gallstones. Patient was on the scheduled induction list for induction of labor for gallstones. Her general surgeon recommended induction so that they can remove the gallbladder. Patient is not currently in any pain as far as her gallbladder goes History of Present Adequate Care: Yes Ultrasounds: normal mid trimester US Obstetrical complications: none and other Medical complications: other (Gallstones) Labs Maternal Blood Type: O Pos Labs: Positive: Rubella Titre and Chlamydia (Chlamydia positive on her initial visit), Negative: RPR, Hepatitis B, HIV, Gonorrhea and Group Beta Strep and Unknown: Herpes Type 1, Herpes Type 2 and Covid-19 Past Medical History Surgical History SURGICAL: Negative Section Meds Home Medications and Allergies Home Medications ?Medication ?Instructions ?Recorded ?Confirmed ?Type vit no.95-ferrous 1 tab PO QDAY 06/04/24 05/0 01/10 History fumarate 28 mg-folic acid 800 mcg tablet () Allergies Allergy/AdvReac Type Severity Reaction Status Date / Time No Known Allergies Allergy Verified 08/24/24 22:52 OB Exam Physical Exam Vital signs: Temp Pulse BP Pulse Ox 98.2 F 76 113/52 L 97 08/24/24 22:55 08/25/24 05:20 08/25/24 05:20 08/25/24 07:00 Detailed Labor and Delivery Exam Effacement (%): Thick Cervix position: posterior station: -3 Consistency: firm Presentation: Vertex Membranes: intact monitor accelerations: 15x15 monitor decelerations: Early longterm variability: Average (6-10) Contraction frequency (min): Irregular OB Results Labs 08/24/24 23:00 Labs: Short CBC 05/09/25 Range/Units 23:00 WBC 10.3 (3.6-11.0) Thou/mm3 Hgb 13.1 (12.0-16.0) g/dL Hct 37.2 (36.0-46.0) % Plt Count 316 (140-440) Thou/mm3 OB Assessment & Plan Assessment and Plan (1) Supervision of high risk in third trimester: Status: Acute (2) Gallstones: Status: Acute Assessment and plan: For Cytotec IOL. First dose given at 2:30 in the morning 08/25/2024.
--- NOTE | 2024-08-25 08:10 | PD.LDPN ---
Documentation for date of: 08/25/24 OB Labor Progress Note Pelvic Exam Dilation (cm): 1.5 Effacement (%): 50 station: -3 Amniotic membrane status: Intact Contractions Monitor mode: External Contraction frequency: Irregular Contraction pattern: Tetanic Contraction intensity: Mild Status status: Category l Assessment and Plan Comments: 23-year-old 1 para 0 at 37 weeks who is being induced due to gallstones. Patient receives care at [facility] and we are covering her as the laborist team. Induction was started by the overnight on-call physician. Category 1 heart rate tracing. Continue current plan.
--- NOTE | 2024-08-25 17:42 | PD.LDPN ---
Documentation for date of: 08/25/24 OB Labor Progress Note Pain Control Pain control: tolerating well and epidural Pelvic Exam Dilation (cm): 3 Effacement (%): 60 station: -3 Amniotic membrane status: Intact Contractions Monitor mode: External Contraction frequency: 1-5.3.5 Contraction pattern: Tetanic Contraction intensity: Mild Status status: Category l Assessment and Plan Assessment: induction ongoing Plan OB labor note: continuous present management CNM Management MD Consulted (describe details below): No
--- NOTE | 2024-08-25 21:35 | PC.NURSE ---
2133 Updated CNM Marily of patients progress, provider orders patient to start pitocin after last cytotec if cat I tracing, US ordered for efw, pitocin to be increased by 1 mu as appropriated.
--- NOTE | 2024-08-25 21:37 | XR_ITS ---
Examination: Complete OB ultrasound greater than 14 weeks Date and time of exam: August 25, 2024 1010 hours INDICATIONS: Patient in active labor, unknown weight and presentation Findings: Viable intrauterine single fetus with single amniotic sac presentation Vertex Cardiac motion 126 BPM. Composite estimated gestational age based on BPD, head circumference, abdominal circumference, femur length is 36 weeks 5 days Estimated weight 3025.9 g. Impression: Viable intrauterine gestation vertex presentation Estimated weight 3025.9 g.
[2024-08-26] VITALS (245 sets, daily range): BP systolic 108–187; BP diastolic 55–93; PULSE 49–132; RESP 17–19; TEMP 36.4–36.7; O2SAT 78–100
[2024-08-26] MEDS: OXYTOCIN in NS 30 units 30 UNIT/500 ML BAG IV (00:14)
[2024-08-26] MEDS: RINGERS LACTATED 1000 ML 1,000 ML 100 ML IV ×4 (07:14→11:51)
[2024-08-26] MEDS: fentaNYL CIT INJ 50 mCg/ML AMP 2ML 100 MCG IV (07:57)
--- NOTE | 2024-08-26 08:37 | PD.LDPN ---
Documentation for date of: 08/26/24 OB Labor Progress Note Pain Control Pain control: tolerating well Comments: Patient is a 23-year-old admitted for induction of labor for gallstones. Her first Cytotec was given 08/25/2024 around 2:30 in the morning. Pelvic Exam Dilation (cm): 5 Effacement (%): 70 station: -2 Amniotic membrane status: Ruptured Comments: Ruptured bag of water at 0702 IUPC placed. Contractions Monitor mode: Internal Contraction frequency: 3 Contraction intensity: Strong Status status: Category l Assessment and Plan Assessment: induction ongoing Plan OB labor note: continuous present management Comments: Continue Pitocin augmentation. Pain medication discussed with patient including epidural and IV fentanyl. Patient will opt for IV fentanyl. Patient states she is not interested in epidural at this time
[2024-08-26] MEDS: TERBUTALINE SULF INJ 1 MG/ML VIAL 0.25 MG SC (10:37)
--- NOTE | 2024-08-26 10:54 | ESPR_ITS ---
Documentation for date of: 08/26/24 OB Labor Progress Note Pain Control Pain control: epidural Comments: Patient just had epidural placed. Pelvic Exam Dilation (cm): 7 Effacement (%): 80 station: -1 Amniotic membrane status: Ruptured Comments: I was called to bedside for deep variable decelerations to the 90s for up to 1 to 2 minutes after each contraction. The patient has made change and is about 7 cm, 6 cm when checked without a contraction. Patient was repositioned, amnioinfusion was started, Pitocin was discontinued. Patient was given 1 shot of terbutaline. The baby has recovered now with all the above maneuvers. The patient was verbally consented about a possibility of a and an OR stress test technician was called in from home. If baby does not tolerate adequate labor, we will proceed with . Contractions Monitor mode: Internal Contraction frequency: 1-2 Contraction pattern: Coupling Contraction intensity: Moderate Status status: Category ll Comments: Category 2, recovered after the above maneuvers. Now currently category 1. Assessment and Plan Assessment: induction ongoing Comments: Discontinue Pitocin augmentation. Will restart once intrauterine resuscitation measures are effective.
[2024-08-26] MEDS: OXYTOCIN in NS 20 units 20 UNIT/1,000 ML BAG 125 UNIT IV (13:37)
--- NOTE | 2024-08-26 14:25 | PD.LDDELS ---
Data ([place]) Data Hx Section: No Maternal Blood Type: O Pos Rubella Titre: Positive RPR: Non-reactive Labs: Negative: RPR, Hepatitis B, HIV, Chlamydia, Gonorrhea and Group Beta Strep : 1 Term: 0 : 0 Livin Abortions: Spontaneous & Theraputic: 0 Delivery Data ([place]) Labor Data Initiation of labor: Induction Induction/Augmentation Agent: Pitocin and Artificial ROM ROM date: 08/26/24 ROM time: 07:02 Amniotic membrane rupture type: Artificial Amniotic fluid description: Clear Delivery Data EDC: 09/13/24 EDC calculated by:: LMP/early US confirmation Date of arrival to unit: 08/24/24 Time of arrival to unit: 22:50 Onset of labor date: 08/26/24 Onset of labor time: 07:02 Complete dilation date: 08/26/24 Complete dilation time: 13:09 [place] delivery date: 08/26/24 [place] delivery time: 13:32 Gestational age (weeks): 37 Gestational age (days): 3 Placenta delivery date: 08/26/24 Placenta delivery time: 13:37 Stage 1 total time: Labor - Stage 1 Duration 6 hours and 7 minutes Length stage 3 (minutes): 5 Delivered by: Ana Cifuentes ([facility]) Delivery nurse: Goldie Mohan nurse: Maru Zavala Lab Rn at delivery: No Support person(s) at delivery: FOB/Mother Delivery Method Delivery: Vaginal Presentation: Vertex Position: OA Anesthesia Type Primary Anesthesia: Epidural Delivery Room Medications Other Intrapartum Medications: No Post Delivery Medications N/A: No Placenta Placenta Delivery: Spontaneous Placenta Cultures Obtained: No Placenta Sent for Examination: No Cord Sample: Cord Blood Obtained Episiotomy Episiotomy: None Lacerations #2: Perineal: 1st degree Periurethral: First-degree Perineal repair Sutures used for repair: other (2-0 chromic) EBL Estimated blood loss (ml): 100 Umbilical Cord Umbilical Vessels: 3 Nuchal Cord: None Body Cord: None Additional Procedures Patient is a 23-year-old admitted at 37 weeks for induction of labor for gallstones. Patient has had multiple gallstone attacks this and general surgery will remove her gallbladder after delivery. care uncomplicated with [facility]. She was admitted 08/24/24 at around 11 PM and had Cytotec placed sometime 08/25/24 in the middle of the night. I took over today when she was about 5 cm and AROMed the patient at 7 in the morning. Intrauterine pressure catheter placed and Pitocin augmentation was begun. The patient had labor epidural placed. She went on to progress to complete by 1309 and pushed less than 30 minutes delivering a liveborn female at 1332. Findings :liveborn female in the EBONI presentation with no nuchal cord no meconium. The baby did have a short umbilical cord. Apgars were 9 and 9 weight was 2735 g. Patient sustained a small first-degree perineal laceration and a left periurethral laceration repaired in a standard fashion using 2-0 chromic. Complications were none. Condition both mom and were in stable condition in the delivery room. Complications Complications: None [place] Data ([place]) [place] Data order: 1 [place]'s gender: Female Identification band number: [id number] weight (gms): 2735 g Weight (pounds): 6 lbs and 0.5 ozs 1 minute: 9 5 minutes: 9
[2024-08-26] MEDS: BENZO/LANO/ALOE (Dermoplast) 60 GM CAN 1 SPRAY TOP (15:39)
[2024-08-26] MEDS: IBUPROFEN TAB 400 MG TABLET 800 MG PO (16:27)
[2024-08-27 00:10] VITALS: BP 114/73; PULSE 81; RESP 16; TEMP 36.9; O2SAT 98
[2024-08-27 04:05] VITALS: BP 117/76; PULSE 83; RESP 18; TEMP 36.7; O2SAT 98
[2024-08-27 06:56] LABS: Basophils % (Auto) 0 % (0-2.5); Eosinophils # (Auto) 0.1 Thou/mm3 (0.0-0.5); Eosinophils % (Auto) 0 % (0-10); Hematocrit 28.9 % (36.0-46.0); Hemoglobin 10.3 g/dL (12.0-16.0); Immature Granulocytes % (Auto) 0 % (0-0); Immature Granulocytes Auto 0.07 Thou/mm3 (0.00-0.00); Lymphocytes # (Auto) 1.8 Thou/mm3 (1.0-4.8); Lymphocytes % (Auto) 11 % (10-50); Mean Corpuscular HGB Conc 35.6 g/dl (31.0-37.0); Mean Corpuscular Hemoglobin 29.3 pg (25.0-35.0); Mean Corpuscular Volume 82 fL (80-100); Monocytes % (Auto) 6 % (0-12); Neutrophils # (Auto) 13.1 Thou/mm3 (1.8-7.7); Neutrophils % (Auto) 82 % (37-80); Nucleated Red Blood Cell % 0 /100 WBC (0); Platelet Count 222 Thou/mm3 (140-440); RDW Standard Deviation 39.3 fL (36.4-46.3); Red Blood Count 3.51 Miln/mm3 (4.00-5.20); White Blood Count 16.1 Thou/mm3 (3.6-11.0)
[2024-08-27 08:00] VITALS: BP 120/77; PULSE 82; RESP 16; TEMP 36.7; O2SAT 97
--- NOTE | 2024-08-27 08:22 | ESPR_ITS ---
Subjective Subjective Interval history: no complaints,no dizziness, voiding,no pain Exam Vital Signs Temp Pulse Resp BP Pulse Ox O2 Del Method 98.0 F 83 18 117/76 98 Room Air 08/27/24 04:05 08/27/24 04:05 08/27/24 04:05 08/27/24 04:05 08/27/24 04:05 08/27/24 04:05 Narrative Exam vital sign stable. breast soft. perineum intact, well approximated,no swelling. small lochia. negative homans, no swelling Objective Labs 08/27/24 04:49 Labs: Laboratory Results - last 24 hr 08/27/24 04:49 WBC 16.1 H D RBC 3.51 L Hgb 10.3 L D Hct 28.9 L MCV 82 MCH 29.3 MCHC 35.6 RDW Std Deviation 39.3 Plt Count 222 D Neut % (Auto) 82 H Lymph % (Auto) 11 [place] % (Auto) 6 Eos % (Auto) 0 Baso % (Auto) 0 Neut # (Auto) 13.1 H Lymph # (Auto) 1.8 [place] # (Auto) 1.0 H Eos # (Auto) 0.1 Baso # (Auto) 0.0 Immature Gran # (Auto) 0.07 H Absolute Nucleated RBC 0.00 Immature Gran % 0 Nucleated RBC % 0 Assessment & Plan Problem List (1) Supervision of high risk in third trimester: Status: Acute (2) Gallstones: Status: Acute Assessment Comment Assessment comment: 24 hr pp Plan Comment Plan Comment: Discharge home with baby. Continue vitamins and iron. Tylenol ibuprofen for pain. Discussed danger signs and symptoms. Discussed ER precautions and parameters. Discussed signs symptoms of infection. Discussed perineal care and comfort measures for laceration. Return in 3 weeks visit Time Spent With Patient Time: Total time spent is greater than 50% in coordination of care (as documented) at patient's floor/unit and/or counseling patient:
--- NOTE | 2024-08-27 08:26 | PD.LDDS ---
DS: Providers Provider Date of admission: 08/24/24 22:43 Primary care physician: Sarmad Bull MD Admitting Provider: Ana Cifuentes MD ([facility]) Attending Provider on Admission: Marily Franklin CNM Consults: 08/26/24 14:33 Referral Routine Comment: Attending Provider on DC: Marily Franklin CNM Discharging Provider: Marily Franklin CNM DS: Diagnosis Problem List Completed Was Problem List Reviewed/Reconciled?: Yes Summary/Hosp Course Brief History: Patient is a 23-year-old G1, P0 with all care uncomplicated with [facility] history of gallstones. Patient was on the scheduled induction list for induction of labor for gallstones. Her general surgeon recommended induction so that they can remove the gallbladder. Patient is not currently in any pain as far as her gallbladder goes Peripartum Data Delivery Method: Normal Vaginal Delivery Episiotomy Description: None Laceration Description: yes (1st perineal) complications: none Time Spent with Patient Time attestation: Total time spent providing and/or coordinating discharge services: Exam Vital Signs Temp Pulse Resp BP Pulse Ox O2 Del Method 98.0 F 83 18 117/76 98 Room Air 08/27/24 04:05 08/27/24 04:05 08/27/24 04:05 08/27/24 04:05 08/27/24 04:05 08/27/24 04:05 Discharge Plan Plan Patient Disposition: HOME (Self Care) Patient condition on transfer: Stable Prescriptions/Referrals Prescriptions/Med Rec: No Action PNV cmb#95-ferrous fumarate-FA [] 28 mg iron- 800 mcg tablet 1 tab PO QDAY Patient Comments: TAKE 1 TABLET BY MOUTH EVERY DAY oxycodone-acetaminophen [Percocet] 5-325 mg tablet 2 tab PO Q8H MDD 6 PRN (Reason: pain) Qty: 20 0RF Rx Instructions: For gallstones and infection. Referrals: Sarmad Bull MD [Primary Care Provider] - Patient/Caregiver Discharge Instructions Discharge Activity: resume usual activities Print Language: Romanian Activity Restrictions/Additional Instructions: Discharge home with baby. Continue vitamins and iron. Tylenol ibuprofen for pain. Discussed danger signs and symptoms. Discussed ER precautions and parameters. Discussed signs symptoms of infection. Increase fluids and rest. Discussed comfort measures for laceration. Return in 3 weeks visit Stand Alone Forms: Susan Award Info., Patient Portal Info Letter Discharge Order Discharge Orders: Discharge (Routine); Ordered 08/27/24 Ordered By: Marily Franklin Planned Discharge Date 08/27/24
== END 2024-08-27 15:15 | disposition home or self-care (01) | DRG 560 ==
LOC: S4SX 08-25 10:05 → S4NX 08-26 16:08
PROVIDERS: Admitting Provider Obstetrics & Gynecology; PCP Family Medicine; Visit Provider Specialist
DX: O26.62 Liver and biliary tract disorders in childbirth (principal); K80.20 Calculus of gallbladder without cholecystitis without obstruction; Z37.0 Single live birth; Z3A.37 37 weeks gestation of pregnancy; O69.3XX0 Labor and delivery complicated by short cord, not applicable or unspecified; O70.0 First degree perineal laceration during delivery; O71.82 Other specified trauma to perineum and vulva; O76 Abnormality in fetal heart rate and rhythm complicating labor and delivery
CPT/HCPCS: 36415; 59409; 76805; 85025; 86780; 86850; 86900; 86901; 94762; J2590; J2795; J3010; J3105; J7120; A9270